=== PATIENT | male | born 1940 | race Caucasian/White ===

== ENCOUNTER → 2016-12-29 | Outpatient (CLI) | payer MEDICARE, OTHER ==
[~2016-12-29] MED LIST: ASPI81TA82 PO; ATEN-100 PO; ATOR20TA42 PO; CANA300T PO; CELE200 PO; CHLO50TA PO; HUMALOG SQ; L-METAB10 PO; LANTUSP SQ; METO50TA PO; SLO NIACIN; ZITH250T PO
--- NOTE | 2016-12-29 10:50 | RADRPT ---
EXAM DATE/TIME: 12/29/2016 00:00 [facility] COMPARISON: No previous studies available for comparison. INDICATIONS : Dysphagia, difficulty swallowing pills and solid food for 6 months FLUORO TIME: 1.0 minutes IMAGE COUNT: 0 CONTRAST: Dose as prescribed by speech pathologist. MEDICAL HISTORY : None. SURGICAL HISTORY : iliac stents ENCOUNTER: Initial ACUITY: 4 - 6 months PAIN SCORE: 0/10 LOCATION: Bilateral esophagus FINDINGS: A modified barium swallow was performed with speech pathology. Patient was given a variety of liquids to swallow. Deglutition was grossly normal resulting in an unobstructed passage of barium into the proximal esoph noni. There is no evidence of vestibular penetration or aspiration. For a full detailed report, see report by the speech pathologist. CONCLUSION: Unremarkable exam. Apollo Giron MD on December 29, 2016 at 10:48 Board Certified Radiologist. This report was verified electronically.
== END ==
LOC: HRAD 10:08
PROVIDERS: ATTEND Specialist
DX: R13.10 Dysphagia, unspecified (principal)
CPT/HCPCS: 74230; 92611; G8996; G8997; G8998

== ENCOUNTER 2017-09-24 03:20 | Emergency (ER) | payer MEDICARE, OTHER ==
[~2017-09-24] VITALS: Ht 175.3 cm; Wt 102.0 kg
[2017-09-24 03:25] VITALS: BP 160/75; PULSE 79; RESP 16; TEMP 97.7; O2SAT 94
--- NOTE | 2017-09-24 03:56 | PD ---
HPI Chief Complaint: Laceration/Skin Injury Time Seen by Provider: 03:47 Travel History International Travel<30 days: No Contact w/Intl Traveler<30days: No Traveled to known affect area: No History of Present Illness HPI The patient is a 77-year-old man who takes Plavix and 81 mg aspirin because of peripheral vascular disease. He has multiple stents in his lower extremities. He fell out of bed tonight and lacerated his left ear. He denies any headache, nausea or vomiting. He denies any focal neurologic change. He cannot remember his last tetanus shot. PFSH Past Medical History Hx Anticoagulant Therapy: Yes (PLAVIX) Cancer: No Cardiac Catheterization: Yes (2008) Cardiovascular Problems: No High Cholesterol: Yes Diabetes: Yes (TYPE 2) Patient Takes Glucophage: Yes Diminished Hearing: Yes (bilateral "left worse than right") Endocrine: Yes Gastrointestinal Disorders: Yes (reflux) GERD: Yes Genitourinary: No Hepatitis: No Hiatal Hernia: No Hypertension: Yes Immune Disorder: No Musculoskeletal: Yes (arthritis back and neck problems) Neurologic: No Psychiatric: No Reproductive: No Respiratory: No Immunizations Current: Yes Thyroid Disease: No Tetanus Vaccination: > 5 Years Influenza Vaccination: Yes Past Surgical History AICD: No Joint Replacement: No Oral Surgery: Yes (tonsillectomy) Pacemaker: No Tonsillectomy: Yes Other Surgery: Yes ("right hand surgery,contractures") Social History Alcohol Use: Yes (SELDOM) Tobacco Use: No Substance Use: No Allergies-Medications (Allergen,Severity, Reaction): Coded Allergies: penicillin G (Unverified Allergy, Severe, ANKLE SWELLING, 09/24/17) Reported Meds & Prescriptions Reported Meds & Active Scripts Active Bactrim DS (Sulfamethoxazole-Trimethoprim) 800-160 Mg Tab 1 Tab PO BID Zithromax Z-Delonte (Azithromycin) 250 Mg Tab 250 Mg PO DIRECTED 500 MG (2 TABLETS) PO ON DAY 1, THEN 250 MG (1 TABLET) PO ON DAYS 2 TO 5. Reported Atenolol 25 Mg Tab 25 Mg PO DAILY Invokana (Canagliflozin) 300 Mg Tab 1 Tab PO DAILY Foltanx (l-Methylfolate W/ Vitamin B6-V) Tab 1 Tab PO BID Chlorthalidone 50 Mg Tab 12.5 Mg PO DAILY Celebrex (Celecoxib) 200 Mg Cap 200 Mg PO DAILY Aspir-81 (Aspirin) 81 Mg Tab 81 Mg PO DAILY Metoprolol Tartrate 50 mg (Metoprolol Tartrate) 50 Mg Tab 25 Mg PO BID [SLO Niacin] 500 Mg DAILY Humalog (Insulin Human Lispro) 100 Units/Ml Inj 0 SQ TID Sliding Scale As Directed. Lantus (Insulin Glargine) 100 Units/Ml Inj 36 Units SQ HS Lipitor (Atorvastatin Calcium) 20 Mg Tab 20 Mg PO DAILY Review of Systems Except as stated in HPI: all other systems reviewed are Neg Physical Exam Narrative GENERAL: Well-nourished, well-developed patient. SKIN: Focused skin assessment warm/dry. HEAD: Normocephalic. Neither raccoon eyes or viera sign is present. EYES: No scleral icterus. No injection or drainage. NECK: Supple, trachea midline. No JVD or lymphadenopathy. CARDIOVASCULAR: Regular rate and rhythm without murmurs, gallops, or rubs. RESPIRATORY: Breath sounds equal bilaterally. No accessory muscle use. GASTROINTESTINAL: Abdomen soft, non-tender, nondistended. MUSCULOSKELETAL: No cyanosis, or edema. BACK: Nontender without obvious deformity. No CVA tenderness. ENT: The left ear is a laceration that is 4 cm long, irregular and with several branches. The tympanic membranes are clear. Data Data Last Documented VS Vital Signs Date Time Temp Pulse Resp B/P (MAP) Pulse Ox O2 Delivery O2 Flow Rate FiO2 09/24/17 03:25 97.7 79 16 160/75 (103) [address] Brain W/O Iv Contrast(Rout) (09/24/17 03:47) Lidocaine 1% Inj (Xylocaine 1% Inj) (09/24/17 04:00) Sulfamet-Trimeth Ds 800-160 Mg (Bactrim (09/24/17 05:00) Tetanus/Diphtheria Tox Adult (Tetanus/Di (09/24/17 05:00) MDM Medical Decision Making Medical Screen Exam Complete: Yes Emergency Medical Condition: Yes Medical Record Reviewed: Yes Interpretation(s) The CT brain shows age-related atrophy but no acute change. Differential Diagnosis Laceration left ear, intracranial bleed, skull fracture Narrative Course The patient has a laceration of left ear. There is no intracranial bleed or fracture of the skull. Procedures Procedure Narrative The laceration total length of 4 cm. Plain lidocaine was used to infiltrate the wound edges. The laceration was irregular with multiple branches. Under sterile technique, 7 stitches of 5-0 nylon were used to close the laceration. No deep stitches were required. Before closing the laceration the wound was irrigated with saline and the wound edges were cleaned with Betadine. Diagnosis Primary Impression: Laceration of left ear Additional Instructions: The stitches come out in 7 or 8 days. Keep the wound clean and dry and keep antibiotic ointment on the wound at all times. After 4 days you can remove the bandage/packing that we put in. This will be Thursday morning. If you have any problems with pain, swelling, increased redness please return to emergency department for evaluation for infection. Med/Other Pt SpecificInfo: Prescription(s) given Scripts Sulfamethoxazole-Trimethoprim (Bactrim DS) 800-160 Mg Tab 1 TAB PO BID for Infection, #20 TAB 0 Refills Prov: Rupert Romo MD 09/24/17 Disposition: DISCHARGE HOME Condition: Stable Rupert Romo MD Sep 24, 2017 03:56
[2017-09-24] MEDS ORDERED: LIDOCAINE HCL 1% 20 ML VIAL INFIL ONE ×2 (04:00)
--- NOTE | 2017-09-24 04:34 | RADRPT ---
EXAM DATE/TIME: 09/24/2017 03:56 [facility] COMPARISON: No previous studies available for comparison. INDICATIONS : Trauma, fall out of bed. RADIATION DOSE: 62.78 CTDIvol (mGy) MEDICAL HISTORY : Hypertension. Diabetes mellitus type 2. SURGICAL HISTORY : None. ENCOUNTER: Initial ACUITY: 1 day PAIN SCALE: 2/10 LOCATION: cranial TECHNIQUE: Multiple contiguous axial images were obtained of the head. Using automated exposure control and adj ustment of the mA and/or kV according to patient size, radiation dose was kept as low as reasonably a chievable to obtain optimal diagnostic quality images. DICOM format image data is available electro nically for review and comparison. FINDINGS: CEREBRUM: The ventricles and cortical sulci are mildly widened. No evidence of midline shift, mass lesion, hem orrhage or acute infarction. No extra-axial fluid collections are seen. POSTERIOR FOSSA: The cerebellum and brainstem are intact. The 4th ventricle is midline. The cerebellopontine angle i s unremarkable. EXTRACRANIAL: The visualized portion of the orbits is intact. SKULL: The calvaria is intact. No evidence of skull fracture. CONCLUSION: 1. No acute abnormality seen. 2. Age-related atrophy. Deepak Lam MD on September 24, 2017 at 4:31 Board Certified Radiologist. This report was verified electronically.
[2017-09-24] MEDS ORDERED: BACT800T5 PO (04:50)
[2017-09-24] MEDS ORDERED: SULFAMETHOXAZOLE-TRIMETHOPRIM DS 800-160 MG TAB PO ONE (05:00)
[2017-09-24] MEDS ORDERED: TETANUS/DIPHTHERIA TOXOID ADULT 0.5 ML VIAL IM ONE (05:00)
[2017-09-24 05:11] VITALS: BP 123/75; TEMP 98.2
== END 2017-09-24 05:11 | disposition home or self-care (01) ==
LOC: PHED 03:20
DX: S01.312A Laceration without foreign body of left ear, initial encounter (principal); E11.51 Type 2 diabetes mellitus with diabetic peripheral angiopathy without gangrene; E78.00 Pure hypercholesterolemia, unspecified; I10 Essential (primary) hypertension; W06.XXXA Fall from bed, initial encounter; Z79.02 Long term (current) use of antithrombotics/antiplatelets; Z79.4 Long term (current) use of insulin; Z23 Encounter for immunization
CPT/HCPCS: 12013; 70450; 90471; 90714